=== PATIENT | male | born 1995 | race Caucasian/White ===

== ENCOUNTER 2017-07-26 08:29 | Emergency (ER) | payer OTHER ==
[2017-07-26 08:35] VITALS: BMI 29.2
--- NOTE | 2017-07-26 08:49 | DR.GENAD ---
HPI - PCP Primary Care Physician: YASMANI CARLOS - HPI Comment HPI Comment: HISTORY BELOW. - Complaint/Symptoms Chief Complaint Doctors Comments: SYNCOPAL EPISODE AT WORK INJURING BOTH HANDS. HAVE HAD VIRAL GASTROENTERITIS AND FEEL WEEK. Chief Complaint:: PT WAS AT WORK AND PASSED OUT AND BOTH HANDS LANDED IN A ROLLER. HE HAS BEEN SICK WITH VIRUS THIS WEEKEND - Nurses notes reviewed Nurses Notes Review: Yes - Source History Provided: Patient - Mode of Arrival Mode of Arrival: Ambulatory - Timing Onset of Chief Complaint: 07/26/17 Came on: Suddenly - Duration Duration: Since Onset Duration: Hours, Days - Severity Severity: Moderate PMH - PMH Past Medical History: No Past Surgical History: Yes Surgical History: Tonsillectomy Past Surgical History Comment: DENTAL - Family History History of Family Medical Conditions: Yes Family Medical History: Hypertension - Social History Does patient currently use any type of tobacco product: Yes Have you used tobacco products in the last 12 months: Yes Type of Tobacco Use: Cigarettes How many years tobacco product used: 5 Does any household member use tobacco: Yes Alcohol Use: Rarely Do you use any recreational Drugs:: No Lives With: Family Lives Where: Home - infectious screening In the last 2 months have you had wt loss of >10#?: NO Have you had fever, night sweats or hemotysis?: No Have you traveled outside the country in the last 6 months?: No Isolation: Standard ROS - Review of Systems Constitutional: No Symptoms Reported Eyes: No Symptoms Reported ENTM: Nose Pain, Nose Discharge, Throat Pain. negative: Ear Pain Respiratoy: No Symptoms Reported. negative: Productive Cough, Non-Productive Cough, Brassy Cough, Short of Breath, Wheezing, Hemoptysis Cardiovascular: No Symptoms Reported Gastrointestinal/Abdominal: Abdominal Pain, Diarrhea, Nausea, Vomiting. negative: Constipation Genitourinary: No Symptoms Reported Neurological: Headache, Weakness, Dizziness Musculoskeletal: Muscle Pain Integumentary: Change in Color Endocrine: No Symptoms Reported All Other Systems: Reviewed and Negative PE - Vital Signs Vitals: Temperature 97.7 F Pulse Rate [Standing] 66 Pulse Rate [Sitting] 66 Pulse Rate [Lying] 68 Pulse Rate 74 Respiratory Rate 16 Blood Pressure [Standing] 132/67 Blood Pressure [Sitting] 118/63 Blood Pressure [Lying] 104/58 Blood Pressure 122/70 O2 Sat by Pulse Oximetry 99 - General Limitations: No Limitations General Appearance: Alert - Head Head Exam: Normal Inspection - Eyes Eye exam: Normal Appearance - ENT ENT Exam: Normal External Ear Exam External Ear Exam: Normal External Inspection TM/Canal Exam: Bilateral Bulging Mouth Exam: Normal Inspection Throat Exam: Tonsillar Erythema - Neck Neck Exam: Trachea Midline - Chest Chest Inspection: Symmetric Chest Wall Rise - Respiratory Respiratory Exam: Normal Lung Sounds Bilat Respiratory Exam: Bilateral Clear to Auscultation - Abdominal Exam Abdominal Exam: Normal Bowel Sounds, Soft. negative: Tenderness - Extremities Extremities Exam: Normal Inspection - Back Back Exam: Normal Inspection - Neurologic Neurological Exam: Alert, Oriented X3 - Psychiatric Psychiatric Exam: Normal Affect, Normal Mood - Skin Skin Exam: Normal Color MDM - Differential Diagnosis Differential Diagnosis: GASTROENTERITIS, SYNCOPE, VERTIGO, OTITIS MEDIS, LABINRINTHITIS Course - Treatment Treatment: SEE ORDERS. - Education/Counseling Education/Counseling: Patient, Education Educated On: Treatment, Diagnosis, Needs for Follow Up ROR - Labs Reviewed Laboratory Results Reviewed?: Yes Result Diagrams: 07/26/17 09:00 07/26/17 09:00 Laboratory: WBC 4.4 X10^3/uL (3.6-10.0) 07/26/17 09:00 RBC 5.19 X10^6/uL (4.7-6.0) 07/26/17 09:00 Hgb 15.8 g/dL (13.5-18.0) 07/26/17 09:00 Hct 45.5 % (42.0-54.0) 07/26/17 09:00 MCV 87.5 fL (80.0-100.0) 07/26/17 09:00 MCH 30.4 pg (27.0-34.0) 07/26/17 09:00 MCHC 34.8 g/dL (33.0-35.0) 07/26/17 09:00 RDW 13.2 % (11.6-16.5) 07/26/17 09:00 Plt Count 121 X10^3/uL (150.0-450.0) L 07/26/17 09:00 MPV 9.0 fL (7.4-11.0) 07/26/17 09:00 Neut % 60.0 % (42.0-75.0) 07/26/17 09:00 Lymph % 26.0 % (21.0-51.0) 07/26/17 09:00 Hendricks % 10.3 % (0.0-13.0) 07/26/17 09:00 Eos % 3.4 % (0.9-2.9) H 07/26/17 09:00 Baso % 0.3 % (0.2-1.0) 07/26/17 09:00 Neut # 2.7 x10^3/uL (2.2-4.8) 07/26/17 09:00 Lymph # 1.2 X10^3/uL (1.3-2.9) L 07/26/17 09:00 Hendricks # 0.5 x10^3/uL (0.3-0.8) 07/26/17 09:00 Eos # 0.2 x10^3/uL (0.0-0.2) 07/26/17 09:00 Baso # 0.0 X10^3/uL (0.0-0.1) 07/26/17 09:00 Absolute Nucleated RBC 0.2 /100WBC 07/26/17 09:00 Sodium 140 mmol/L (136-145) 07/26/17 09:00 Corrected Sodium TNP 07/26/17 09:00 Potassium 4.5 mmol/L (3.5-5.1) 07/26/17 09:00 Chloride 106 mmol/L (98-107) 07/26/17 09:00 Carbon Dioxide 26.1 mmol/L (21-32) 07/26/17 09:00 BUN 16 mg/dL (7-18) 07/26/17 09:00 Creatinine 1.04 mg/dL (0.70-1.30) 07/26/17 09:00 Est GFR (MDRD) Af Amer > 60 (>60) 07/26/17 09:00 Est GFR (MDRD) Non-Af > 60 (>60) 07/26/17 09:00 Glucose 98 mg/dL (65-99) 07/26/17 09:00 Calcium 8.8 mg/dL (8.5-10.1) 07/26/17 09:00 Corrected Calcium TNP 07/26/17 09:00 Total Bilirubin 0.20 mg/dL (0.2-1.0) 07/26/17 09:00 AST 21 Units/L (15-37) 07/26/17 09:00 ALT 35 Units/L (12-78) 07/26/17 09:00 Alkaline Phosphatase 69 Units/L (46-116) 07/26/17 09:00 Creatine Kinase 66 Units/L (39-308) 07/26/17 09:00 CK-MB (CK-2) < 1.0 ng/mL (0-4.0) 07/26/17 09:00 CK/CKMB % Calc 1.5 % (<4) 07/26/17 09:00 Troponin I < 0.02 ng/mL (0-1.5) 07/26/17 09:00 Total Protein 6.9 g/dL (6.4-8.2) 07/26/17 09:00 Albumin 3.7 g/dL (3.4-5.0) 07/26/17 09:00 Globulin 3.2 g/dL (2.5-4.5) 07/26/17 09:00 Albumin/Globulin Ratio 1.2 Ratio (1.1-2.1) 07/26/17 09:00 Amylase 31 Units/L (25-115) 07/26/17 09:00 Lipase 115 Units/L (73-393) 07/26/17 09:00 Specimen Type Clean catch urine 07/26/17:18 Urine Color Yellow (YELLOW) 07/26/17 09:18 Urine Appearance Clear (CLEAR) 07/26/17 09:18 Urine pH 6.5 (5.0 - 8.0) 07/26/17 09:18 Ur Specific [place] 1.015 (1.000-1.030) 07/26/17:18 Urine Protein 2+ (NEGATIVE) 07/26/17:18 Urine Glucose (UA) Negative (NEGATIVE) 07/26/17:18 Urine Ketones Negative (NEGATIVE) 07/26/17:18 Urine Occult Blood Negative (NEGATIVE) 07/26/17:18 Urine Nitrite Negative (NEGATIVE) 07/26/17 09:18 Urine Bilirubin Negative (NEGATIVE) 07/26/17 09:18 Urine Urobilinogen Normal (NORMAL) 07/26/17:18 Ur Leukocyte Esterase 1+ (NEGATIVE) 07/26/17:18 Urine RBC 0-5 /HPF (NEGATIVE) 07/26/17 09:18 Urine WBC 0-5 /HPF (NEGATIVE) 07/26/17 09:18 Ur Squamous Epith Cells Negative /HPF (NEGATIVE) 07/26/17 09:18 Urine Bacteria Negative /HPF (NEGATIVE) 07/26/17 09:18 Hyaline Casts Rare /LPF (NEGATIVE) 07/26/17 09:18 Urine Mucus Rare /HPF (NEGATIVE) 07/26/17 09:18 Ur Culture Indicated? No/not indicated 07/26/17 09:18 Non-DOT Drug Screen Collected 07/26/17 11:10 - XRAY XRAY Findings: REPORT DISCUSS WITH PATIENT. - Diagnosis Discharge Problem: Gastroenteritis Syncope Qualifiers: Syncope type: unspecified Qualified Code(s): R55 - Syncope and collapse - Discharge Plan Disposition: 01 HOME, SELF-CARE Condition: Stable Prescriptions: Diphenoxylate/Atropine [Lomotil] 1 tab PO TID PRN #15 tab PRN Reason: Ondansetron [Zofran ODT 8 mg] 8 mg PO Q8H PRN #12 tab PRN Reason: Nausea/Vomiting - Follow ups/Referrals Follow ups/Referrals: [facility],None [Primary Care Provider] - 3 days - Instructions Instructions: Viral Gastroenteritis, Adult, [id number], Syncope, [id number] Additional Instructions: RETURN TO ED IF WORSE.
--- NOTE | 2017-07-26 09:24 | CT ---
HISTORY: Altered mental status Study: CT head without contrast Comparison: None Technique: Axial noncontrast images with coronal and sagittal reformats. Dose reduction procedures we re used with mA/kv adjusted for body size. Findings: The ventricles are normal in size shape and position. There are no areas of abnormal attenuation to s uggest recent or remote CVA, hemorrhage, mass lesion, or extra-axial fluid collection. The calvarium is intact. There is extensive opacification of the frontal, ethmoid, and sphenoid sinuses likely due to sinusitis. The calvarium is intact. IMPRESSION: No intracranial abnormality Severe pansinusitis involving the frontal, ethmoid, and sphenoid sinuses bilaterally Reported By:
[2017-07-26 09:27] LABS: BASOPHILS % (AUTO) 0.3 % (0.2-1.0); EOSINOPHILS # (AUTO) 0.2 x10^3/uL (0.0-0.2); EOSINOPHILS % (AUTO) 3.4 % (0.9-2.9); HEMATOCRIT 45.5 % (42.0-54.0); HEMOGLOBIN 15.8 g/dL (13.5-18.0); LYMPHOCYTES # (AUTO) 1.2 X10^3/uL (1.3-2.9); MEAN CORPUSCULAR HEMOGLOBIN 30.4 pg (27.0-34.0); MEAN CORPUSCULAR HGB CONC 34.8 g/dL (33.0-35.0); MEAN CORPUSCULAR VOLUME 87.5 fL (80.0-100.0); MONOCYTES # (AUTO) 0.5 x10^3/uL (0.3-0.8); MONOCYTES % (AUTO) 10.3 % (0.0-13.0); NEUTROPHILS # (AUTO) 2.7 x10^3/uL (2.2-4.8); PLATELET COUNT 121 X10^3/uL (150.0-450.0); RED BLOOD COUNT 5.19 X10^6/uL (4.7-6.0); RED CELL DISTRIBUTION WIDTH 13.2 % (11.6-16.5); WHITE BLOOD COUNT 4.4 X10^3/uL (3.6-10.0)
[2017-07-26 09:29] LABS: BILIRUBIN,URINE NEGATIVE (NEGATIVE); BLOOD/HEMOGLOBIN,URINE NEGATIVE (NEGATIVE); GLUCOSE, URINE NEGATIVE (NEGATIVE); KETONES,URINE NEGATIVE (NEGATIVE); LEUKOCYTE ESTERASE ,URINE 1+ (NEGATIVE); NITRITES,URINE NEGATIVE (NEGATIVE); PH,URINE 6.5 (5.0 - 8.0); PROTEIN,URINE 2+ (NEGATIVE); UROBILINOGEN,URINE NORMAL (NORMAL)
--- NOTE | 2017-07-26 09:30 | RAD ---
HISTORY: Injury left hand Study: Left hand AP, lateral, oblique Comparison: None Findings: There is no evidence for acute bone or acute joint abnormality. No fracture, lytic, or blastic lesion is identified. No erosive arthritis or soft tissue abnormality is identified. IMPRESSION: No significant abnormality identified Reported By:
--- NOTE | 2017-07-26 09:31 | RAD ---
HISTORY: Injury right hand Study: Right hand AP, lateral, oblique Comparison: None Findings: There is no evidence for fracture, lytic, or blastic lesion. No erosive arthritis or soft tissue abno rmality is identified. IMPRESSION: No significant abnormality identified Reported By:
[2017-07-26 09:33] LABS: APPEARANCE,URINE CLEAR (CLEAR); COLOR,URINE YELLOW (YELLOW)
[2017-07-26 09:39] LABS: BLOOD UREA NITROGEN 16 mg/dL (7-18); CALCIUM 8.8 mg/dL (8.5-10.1); CARBON DIOXIDE 26.1 mmol/L (21-32); CHLORIDE 106 mmol/L (98-107); CREATININE 1.04 mg/dL (0.70-1.30); SODIUM 140 mmol/L (136-145); TROPONIN I < 0.02 ng/mL (0-1.5); eGFR BLACK RACES > 60 (>60); eGFR NON BLACK RACES > 60 (>60)
[2017-07-26 09:40] VITALS: BP 104/58
[2017-07-26 09:45] LABS: BACTERIA,URINE NEGATIVE /HPF (NEGATIVE); RBC,URINE 0-5 /HPF (NEGATIVE); SQUAMOUS EPITHELIAL CELL,UR NEGATIVE /HPF (NEGATIVE)
[2017-07-26 09:46] LABS: HYALINE CASTS, URINE RARE /LPF (NEGATIVE); MUCUS,URINE RARE /HPF (NEGATIVE)
[2017-07-26 09:53] LABS: ALANINE AMINOTRANSFERASE 35 Units/L (12-78); ALBUMIN 3.7 g/dL (3.4-5.0); ALKALINE PHOSPHATASE 69 Units/L (46-116); AMYLASE 31 Units/L (25-115); ASPARTATE AMINO TRANSFERASE 21 Units/L (15-37); CKMB % 1.5 % (<4); CREATINE KINASE 66 Units/L (39-308); CREATINE KINASE MB < 1.0 ng/mL (0-4.0); LIPASE 115 Units/L (73-393); TOTAL PROTEIN 6.9 g/dL (6.4-8.2)
== END 2017-07-26 10:52 | disposition home or self-care (01) ==
LOC: ER 08:47
DX: K52.89 Other specified noninfective gastroenteritis and colitis (principal); R55 Syncope and collapse
CPT/HCPCS: 36415; 70450; 73130; 80053; 81001; 82150; 82550; 82553; 83690; 84484; 85025; 93005; 93010; 99000; 99282; 99283